=== PATIENT | female | born 1960 | race Caucasian/White ===

== ENCOUNTER 2019-06-27 21:59 | Emergency (ER) | payer OTHER ==
[~2019-06-27] VITALS: Ht 182.9 cm; Wt 143.0 kg
[2019-06-27] MEDS ORDERED: BACITRACIN ZINC OINT UDPKT TOP ONE (23:30)
[2019-06-27] MEDS ORDERED: ACETAMINOPHEN 650MG/20.3ML UDC PO ONE (23:30)
[2019-06-28] MEDS ORDERED: BACITRACIN 15GM TUBE TOP SCH (00:33)
[2019-06-28] MEDS ORDERED: LIDOCAINE 1%/EPI 1:100,000 10 ML VIAL IJ ONE (01:45)
[2019-06-28] MEDS ORDERED: LIDOCAINE HCL/EPINEPHRINE 1%-EPI 1:100,000 20 ML VIAL ONE (01:58)
[2019-06-28] MEDS ORDERED: LIDOCAINE HCL/EPINEPHRINE 1%-EPI 1:100,000 20 ML VIAL INFIL SCH (02:00)
[2019-06-28 04:34] VITALS: BP 131/82
== END 2019-06-28 05:52 | disposition home or self-care (01) ==
LOC: ER 21:59
DX: S01.01XA Laceration without foreign body of scalp, initial encounter (principal); M79.5 Residual foreign body in soft tissue; E11.9 Type 2 diabetes mellitus without complications; X95.01XA Assault by airgun discharge, initial encounter; Y93.9 Activity, unspecified; Y92.9 Unspecified place or not applicable; Z88.6 Allergy status to analgesic agent
CPT/HCPCS: 70360; 70450; 99284; J3490; Z7610